=== PATIENT | female | born 1970 | race American Indian/Alaskan Native ===

== ENCOUNTER 2021-11-14 19:30 | Emergency (ER) | payer SELFPAY ==
[2021-11-14 20:46] LABS: Basophils % (Auto) 0.3 % (0.0-1.8); Eosinophils # (Auto) 0.4 K/mm3 (0.0-0.4); Eosinophils % (Auto) 2.4 % (0.0-4.3); Lymphocytes # (Auto) 2.5 K/mm3 (1.2-5.4); Lymphocytes % (Auto) 15.9 % (13.4-35.0); Mean Corpuscular HGB Conc 31 % (30-34); Monocytes # (Auto) 0.7 K/mm3 (0.0-0.8); Monocytes % (Auto) 4.7 % (0.0-7.3); Platelet Count 299 K/mm3 (140-440); Red Blood Count 2.73 M/mm3 (3.65-5.03); Red Cell Distribution Width 19.4 % (13.2-15.2)
[2021-11-14 20:50] LABS: Mean Corpuscular Volume 68 fl (79-97)
[2021-11-14 20:54] LABS: Hematocrit 18.6 % (30.3-42.9); Hemoglobin 5.7 gm/dl (10.1-14.3)
[2021-11-14] MEDS ORDERED: SODIUM CHLORIDE 0.9% 500 ML 500 ML IV ONE (23:21)
--- NOTE | 2021-11-14 23:39 | Emergency Department Report ---
ED General Adult HPI - General Chief complaint: Vaginal Bleeding Stated complaint: VAGINAL BLEEDING Time Seen by Provider: 11/14/21 23:20 Source: patient Mode of arrival: Ambulatory Limitations: No Limitations - History of Present Illness Initial comments: Patient is 51 years old female with history of hypertension and a uterine fibroid. Patient presented to the ER for evaluation of possible need for blood transfusion. Patient was seen by her chemical etching processor today and she was told that her blood count is low and she needed to come to the ER. Patient stated that she has been bleeding for 5days went to the ER they did ultrasound and she was told that she has a fibroid and followed by her with her chemical etching processor today. Patient is also complaining of mild shortness of breath and palpitation. No other complaint. - Related Data Allergies Allergy/AdvReac Type Severity Reaction Status Date / Time No Known Allergies Allergy Verified 11/14/21 20:10 ED Review of Systems ROS: Stated complaint: VAGINAL BLEEDING Other details as noted in HPI Comment: All other systems reviewed and negative Constitutional: denies: chills, fever Respiratory: shortness of breath Cardiovascular: palpitations. denies: chest pain Gastrointestinal: abdominal pain. denies: nausea, vomiting, diarrhea, constipation, hematemesis, melena Genitourinary: abnormal menses Musculoskeletal: denies: back pain ED Physical Exam - General Limitations: No Limitations General appearance: alert, in no apparent distress - Head Head exam: Present: atraumatic, normocephalic, normal inspection - Eye Eye exam: Present: other (Pale conjunctive ) - ENT ENT exam: Present: normal exam, normal orophraynx, mucous membranes moist - Neck Neck exam: Present: normal inspection, full ROM. Absent: tenderness, meningismus - Respiratory Respiratory exam: Present: normal lung sounds bilaterally - Cardiovascular Cardiovascular Exam: Present: tachycardia - GI/Abdominal GI/Abdominal exam: Present: soft, normal bowel sounds. Absent: distended, tenderness, guarding, rebound, rigid, organomegaly, mass, bruit, pulsatile mass, hernia - Extremities Exam Extremities exam: Present: normal inspection, full ROM, normal capillary refill. Absent: tenderness - Back Exam Back exam: Present: normal inspection, full ROM. Absent: CVA tenderness (R), CVA tenderness (L) - Neurological Exam Neurological exam: Present: alert, oriented X3, CN II-XII intact, normal gait, reflexes normal. Absent: motor sensory deficit - Psychiatric Psychiatric exam: Present: normal mood - Skin Skin exam: Present: warm, intact, normal color ED Course Vital Signs 11/14/21 11/14/21 11/15/21 19:37 23:40 01:43 Temperature 98.5 F 97.6 F Pulse Rate 117 H 94 H Respiratory 18 18 Rate Blood Pressure 135/69 145/72 O2 Sat by Pulse 100 98 100 Oximetry 11/15/21 11/15/21 11/15/21 02:00 02:55 04:46 Temperature 98.5 F 98.3 F Pulse Rate 85 85 Respiratory 18 18 18 Rate Blood Pressure 137/78 153/72 O2 Sat by Pulse 100 99 Oximetry ED Medical Decision Making - Lab Data Result diagrams: 11/14/21 20:20 11/14/21 23:43 - Medical Decision Making Patient is 51 years old female with history of hypertension and a uterine fibroid. Patient presented to the ER for evaluation of possible need for blood transfusion. Patient was seen by her chemical etching processor today and she was told that her blood count is low and she needed to come to the ER. Patient stated that she has been bleeding for 5days went to the ER they did ultrasound and she was told that she has a fibroid and followed by her with her chemical etching processor today. Patient is also complaining of mild shortness of breath and palpitation. No other complaint. Patient received 2 units of PRBC. Critical Care Time: Yes Critical care time in (mins) excluding proc time.: 35 Critical care attestation.: If time is entered above; I have spent that time in minutes in the direct care of this critically ill patient, excluding procedure time. ED Disposition Clinical Impression: Symptomatic anemia, Uterine fibroid Disposition: 01 HOME / SELF CARE / HOMELESS Is pt being admited?: No Condition: Stable Instructions: Uterine Fibroids, Blood Transfusion, Adult, Care After, [id number] Referrals: FLORINA RODRIGUEZ MD [Primary Care Provider] - 3-5 Days
[2021-11-14 23:41] LABS: Bilirubin,Urine SM (Negative); Blood,Urine LG (Negative); Color,Urine Amber (Yellow); Mucus,Urine 2+ /HPF; Urobilinogen,Urine < 2.0 mg/dL (<2.0)
[2021-11-14 23:56] LABS: RBC,Urine > 182.0 /HPF (0.0-6.0)
[2021-11-15 00:03] LABS: Ictotest,Urine Negative (Negative)
[2021-11-15 00:27] LABS: INR 1.03 (0.87-1.13)
[2021-11-15 00:28] LABS: Partial Thromboplastin Time 24.1 Sec. (24.2-36.6)
[2021-11-15 00:39] LABS: Alanine Aminotransferase 14 units/L (7-56); Albumin 3.7 g/dL (3.9-5); BUN/Creatinine Ratio 9; Blood Urea Nitrogen 9 mg/dL (7-17); Calcium 7.9 mg/dL (8.4-10.2); Hemolysis Index 54
[2021-11-15 00:44] LABS: Bilirubin,Direct < 0.2 mg/dL (0-0.2)
[2021-11-15] MEDS ORDERED: SODIUM CHLORIDE 0.9% 500 ML 500 ML ONE (03:33)
[2021-11-15] MEDS ORDERED: ONDANSETRON 4 MG/2 ML INJ IV ONE (04:29)
[2021-11-15] MEDS ORDERED: MORPHINE 4 MG/1 ML INJ IV ONE (04:29)
[2021-11-15 06:40] LABS: Hematocrit 24.5 % (30.3-42.9); Hemoglobin 7.4 gm/dl (10.1-14.3)
[2021-11-15 06:54] VITALS: BP 151/91
== END 2021-11-15 08:30 | disposition home or self-care (01) ==
LOC: ED 19:30
DX: D64.9 Anemia, unspecified (principal); D25.9 Leiomyoma of uterus, unspecified; R79.1 Abnormal coagulation profile
CPT/HCPCS: 36415; 36430; 80048; 80076; 81001; 84702; 84703; 85014; 85018; 85025; 85610; 85730; 86850; 86900; 86901; 86920; 87086; 96361; 96374; 96375; 99283; J2270; J2405; J7040; P9016

== ENCOUNTER 2021-11-28 23:21 | Emergency (ER) | payer BC | END 2021-11-29 01:56 | disposition left against medical advice (07) | LOC: ED 23:21 | DX: R06.02 Shortness of breath (principal); Z53.21 Procedure and treatment not carried out due to patient leaving prior to being seen by health care provider ==

== ENCOUNTER 2022-03-20 07:50 | Emergency (ER) | payer BC ==
[2022-03-20 10:20] LABS: Basophils % (Auto) 0.3 % (0.0-1.8); Eosinophils # (Auto) 0.3 K/mm3 (0.0-0.4); Eosinophils % (Auto) 3.1 % (0.0-4.3); Hematocrit 21.7 % (30.3-42.9); Hemoglobin 6.5 gm/dl (10.1-14.3); Lymphocytes # (Auto) 1.9 K/mm3 (1.2-5.4); Lymphocytes % (Auto) 19.8 % (13.4-35.0); Mean Corpuscular HGB Conc 30 % (30-34); Monocytes # (Auto) 0.7 K/mm3 (0.0-0.8); Monocytes % (Auto) 7.1 % (0.0-7.3); Platelet Count 294 K/mm3 (140-440); Red Blood Count 3.36 M/mm3 (3.65-5.03)
[2022-03-20 10:41] LABS: Alanine Aminotransferase 15 units/L (7-56); Albumin 3.8 g/dL (3.9-5); BUN/Creatinine Ratio 11; Blood Urea Nitrogen 10 mg/dL (7-17); Calcium 8.6 mg/dL (8.4-10.2); Hemolysis Index 0
[2022-03-20 10:47] LABS: Mean Corpuscular Volume 65 fl (79-97); Red Cell Distribution Width 20.9 % (13.2-15.2)
--- NOTE | 2022-03-20 12:10 | Emergency Department Report ---
<SOPHIE WOLFE Tracie - Last Filed: 03/21/22 15:58> ED Female HPI - General Chief complaint: Recheck/Abnormal Lab/Rx Stated complaint: BLOOD TRANSFER Time Seen by Provider: 03/20/22 09:23 Source: patient Mode of arrival: Ambulatory Limitations: No Limitations - History of Present Illness Initial comments: 51 YO FEMALE CEDRICK/POST MENOPAUSAL COMES TO ER WITH VAGINAL BLEEDING MD Complaint: vaginal bleeding Improves with: none Worsens with: none Are you Now?: No Associated Symptoms: vaginal bleeding - Related Data Sexually active: Yes Previous Rx's Medication Instructions Recorded Last Taken Type Ferrous Sulfate [Ferrous Sulfate 324 mg PO DAILY #30 11/15/21 Unknown Rx 324 MG] Allergies Allergy/AdvReac Type Severity Reaction Status Date / Time No Known Allergies Allergy Verified 03/20/22 08:15 ED Review of Systems Comment: All other systems reviewed and negative ED Past Medical Hx - Past Medical History Previous Medical History?: Yes Hx Hypertension: Yes Additional medical history: UTERINE FIBROIDS. PFO - Surgical History Past Surgical History?: Yes - Family History Family history: no significant - Social History Smoking Status: Never Smoker Substance Use Type: None - Medications Home Medications: Home Medications Medication Instructions Recorded Confirmed Last Taken Type Ferrous Sulfate [Ferrous Sulfate 324 mg PO DAILY #30 11/15/21 Unknown Rx 324 MG] ED Physical Exam - General Limitations: No Limitations General appearance: alert, in no apparent distress - Head Head exam: Present: atraumatic, normocephalic - Eye Eye exam: Present: normal appearance - ENT ENT exam: Present: mucous membranes moist - Neck Neck exam: Present: normal inspection - Respiratory Respiratory exam: Present: normal lung sounds bilaterally. Absent: respiratory distress - Cardiovascular Cardiovascular Exam: Present: regular rate, normal rhythm. Absent: systolic murmur, diastolic murmur, rubs, gallop - GI/Abdominal GI/Abdominal exam: Present: soft, normal bowel sounds - Extremities Exam Extremities exam: Present: normal inspection - Back Exam Back exam: Present: normal inspection - Neurological Exam Neurological exam: Present: alert, oriented X3 - Psychiatric Psychiatric exam: Present: normal affect, normal mood - Skin Skin exam: Present: warm, dry, intact, normal color. Absent: rash ED Course - Reevaluation(s) Reevaluation #1: 03/20/22 17:04 HOME MEDS NORVASC HCTZ ED Medical Decision Making - Lab Data Result diagrams: 03/20/22 09:07 03/20/22 09:07 - Radiology Data Radiology results: report reviewed, image reviewed SEE REPORT - Medical Decision Making Labs 03/20/22 03/20/22 03/20/22 09:07 09:07 10:25 WBC 9.8 RBC 3.36 L Hgb 6.5 L Hct 21.7 L MCV 65 L MCH 19 L MCHC 30 RDW 20.9 H Plt Count 294 Lymph % (Auto) 19.8 Jerome % (Auto) 7.1 Eos % (Auto) 3.1 Baso % (Auto) 0.3 Lymph # (Auto) 1.9 Jerome # (Auto) 0.7 Eos # (Auto) 0.3 Baso # (Auto) 0.0 Seg Neutrophils % 69.7 Seg Neutrophils # 6.8 Sodium 142 Potassium 3.9 Chloride 104.8 Carbon Dioxide 22 Anion Gap 19 BUN 10 Creatinine 0.9 Estimated GFR > 60 BUN/Creatinine Ratio 11 Glucose 110 H Calcium 8.6 Total Bilirubin 0.20 AST 23 ALT 15 Alkaline Phosphatase 93 Total Protein 6.4 Albumin 3.8 L Albumin/Globulin Ratio 1.5 HCG, Qual Blood Type B POSITIVE Antibody Screen Positive Antibody Identification Anti-E Crossmatch See Detail 03/20/22 11:12 WBC RBC Hgb Hct MCV MCH MCHC RDW Plt Count Lymph % (Auto) Jerome % (Auto) Eos % (Auto) Baso % (Auto) Lymph # (Auto) Jerome # (Auto) Eos # (Auto) Baso # (Auto) Seg Neutrophils % Seg Neutrophils # Sodium Potassium Chloride Carbon Dioxide Anion Gap BUN Creatinine Estimated GFR BUN/Creatinine Ratio Glucose Calcium Total Bilirubin AST ALT Alkaline Phosphatase Total Protein Albumin Albumin/Globulin Ratio HCG, Qual Negative Blood Type Antibody Screen Antibody Identification Crossmatch Vital Signs 03/20/22 08:09 Temperature 98.0 F Pulse Rate 108 H Respiratory 18 Rate Blood Pressure 141/86 [Right] O2 Sat by Pulse 99 Oximetry LABS NOTED US NOTED I'VE DISCUSSED WITH THE PT THE NEED FOR HER TO SEE OBGYN FOR HER FIBROIDS NOT JUST HER PCP SHE VERBALIZES UNDERSTANDING OF THIS 2 RBC ORDERED 1600 JADEN RN AWARE OF NEED FOR BLOOD PRODUCT PLAN ADMIT RBC X 2 VS AND THEN DC SHE WILL NOT NEED REPEAT LABS VS ON DC AND SHE HAS FOLLOW UP ON HER CHART. - Differential Diagnosis RO SYMPTOMATIC ANEMIA ED Disposition Clinical Impression: Symptomatic anemia, DUB (dysfunctional uterine bleeding) Disposition: 01 HOME / SELF CARE / HOMELESS Is pt being admited?: No Does the pt Need Aspirin: No Condition: Good Instructions: Abnormal Uterine Bleeding Additional Instructions: FOLLOW UP WITH [facility] REGARDING HYSTERECTOMY REFERRAL BELOW LET THEM KNOW YOUVE BEEN SEEN HERE AND THEY CAN SEE IMAGES DIET AND ACTIVITY TOLERATED MEDS PER USUAL ROUTINE Referrals: AJ DAMON MD [Staff Physician] - 3-5 Days Forms: Work/School Release Form(ED) Time of Disposition: 17:03 <ADAN GLEASON - Last Filed: 03/22/22 13:48> ED Review of Systems ROS: Stated complaint: BLOOD TRANSFER Other details as noted in HPI ED Course Vital Signs 03/20/22 03/20/22 08:09 20:37 Temperature 98.0 F Pulse Rate 108 H 92 H Respiratory 18 14 Rate Blood Pressure 141/86 136/82 [Right] O2 Sat by Pulse 99 97 Oximetry ED Medical Decision Making - Lab Data Result diagrams: 03/20/22 09:07 03/20/22 09:07 Critical care attestation.: If time is entered above; I have spent that time in minutes in the direct care of this critically ill patient, excluding procedure time. ED Disposition Is pt being admited?: No Does the pt Need Aspirin: No
[2022-03-20] MEDS ORDERED: SODIUM CHLORIDE 0.9% 1000 ML 1,000 ML IV ONE (12:11)
[2022-03-20] MEDS ORDERED: SODIUM CHLORIDE 0.9% 500 ML 500 ML IV ONE (12:11)
--- NOTE | 2022-03-20 12:57 | Ultrasound Report ---
Pelvic Ultrasound HISTORY: EVALUATE FOR FIBROIDS. TECHNIQUE: Grayscale and color imaging performed. COMPARISON: None FINDINGS: Transabdominal and endovaginal technique performed. Uterus measures 15.6 x 8.0 x 12.3 cm with a few uterine fibroids noted the largest of which measures 5.7 cm in the lower uterine segment posteriorly. Endometrial echocomplex measures 2.9 cm. Both ovaries are normal in size with 4.3 cm cyst on the right which is relatively simple appearance. No pelvic free fluid. IMPRESSION: 1. Uterine fibroids as outlined above. 2. Simple right ovarian cyst. Signer Name: Pawel Sheth MD Signed: 03/20/2022 12:53 PM Workstation Name: [email or web address]
[2022-03-20 20:38] VITALS: BP 136/82
== END 2022-03-20 21:08 | disposition home or self-care (01) ==
LOC: ED 07:50
DX: D64.89 Other specified anemias (principal); N93.8 Other specified abnormal uterine and vaginal bleeding; I10 Essential (primary) hypertension
CPT/HCPCS: 36415; 76830; 76856; 80053; 84703; 85025; 86850; 86870; 86900; 86901; 86922; 96360; 99284; J7030